=== PATIENT | female | born 2000 | race Caucasian/White ===

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

== ENCOUNTER 2021-06-05 19:19 | Emergency (ER) | payer OTHER ==
[~2021-06-05] VITALS: Ht 180.3 cm; Wt 79.4 kg
[~2021-06-05 19:19] MED LIST: CLEOCIN HCL300 MG PO
[2021-06-05] MEDS ORDERED: PROZAC10 MG PO (19:31)
[2021-06-05] MEDS ORDERED: PROVENTIL HFA6.7 GM INH (21:33)
--- NOTE | 2021-06-06 19:17 | EKG ---
[facility] [address] [facility] [place], [place] [address] Signed Normal sinus rhythm with sinus arrhythmia Normal ECG No previous ECGs available Confirmed by JOSSY CRAFT DO ([id number]) on 06/06/2021 7:17:32 PM Electronically Signed By: JOSSY CRAFT DO 06/06/211916 PATIENT NAME: NILESH ZARAGOZA Electrocardiogram DATE OF : 00 PHYSICIAN: JOSSY CRAFT DO REPORT #: [id number] REPORT IS CONFIDENTIAL AND NOT TO BE RELEASED WITHOUT AUTHORIZATION
== END 2021-06-05 21:47 | disposition home or self-care (01) ==
LOC: ED 19:19
DX: U07.1 COVID-19 (principal); Z88.0 Allergy status to penicillin; Z88.5 Allergy status to narcotic agent
CPT/HCPCS: 71045; 93005; 93010; 99285-25; C9803; U0003

== ENCOUNTER 2022-04-03 19:03 | Inpatient (IN) | payer OTHER ==
[~2022-04-03] VITALS: Ht 182.9 cm; Wt 78.3 kg
[~2022-04-03 19:03] MED LIST changes: +PROVENTIL HFA6.7 GM INH; +PROZAC10 MG PO
--- NOTE | 2022-04-04 03:00 | NUR ---
IN TO ASSIST PT WITH IV POLE, INDEPENDENTLY UP TO THE TOILET, VOIDED AND BACK TO BED
--- NOTE | 2022-04-04 07:26 | NUR ---
Patient in bed resting, eyes closed, respirations even and non labored. Patient has no notable distress. Personal supplies and call light within reach.
--- NOTE | 2022-04-04 09:06 | NUR ---
Patient up in chair eating without distress, a&ox4. Patient reports she is feeling much better today, she denies abdominal discomfort and n/v. More chicken broth and jello provided. No further needs, personal supplies and call light within reach.
--- NOTE | 2022-04-04 11:11 | NUR ---
PATIENT WAS SITTING UP IN HER CHAIR WHILE DRINKING HER BREAKFAST WHEN SHE WAS FINISHED SHE WENT BACK TO BED.
--- NOTE | 2022-04-04 11:25 | NUR ---
Patient resting in bed, no distress. Patient denies abd pain and n/v, tolerating clears very well. Patient's iv site is patent, cont fluids infusing per provider order. No current needs, personal supplies and call light within reach.
--- NOTE | 2022-04-04 14:15 | HP ---
[facility] [address] [place], [place] [address] Signed ADMISSION DATE: 04/03/2022 REASON FOR ADMISSION: Terminal ileitis with focal perforation. 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 She presented to the emergency room at approximately 7:30 p.m. and was evaluated by Dr. Morel with right lower abdominal pain. Clinical examination was highly suggestive of appendicitis. The patient had been having abdominal pain for the past two weeks and upon further discussion, she has had episodes of right lower abdominal pain really since her late teens. She has had multiple episodes of abdominal pain, cramping, and symptoms that were suggestive of low-grade obstruction. She sees MARIIA Arteaga, as her primary provider and recently saw her for similar complaints and was given antacids. Evaluation by Dr. Morel included a CT scan of the abdomen, which showed findings highly suggestive of terminal ileitis as well as a small 2 cm abscess within the mesentery of the ileum. Suggestion is made of possible interloop fistula though that is not clearly demonstrated upon my review. PAST MEDICAL HISTORY: Otherwise unremarkable. She has never had abdominal surgery. Last menstrual period was in March 2022. She does not smoke, use alcohol or illicit drugs. SURGICAL HISTORY: Includes wisdom tooth extraction. ALLERGIES: She is noted to have allergy to penicillin (rash) and hydrocodone, also rash. SOCIAL HISTORY: She is accompanied at this time by her parents. 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 REVIEW OF SYSTEMS: She denies any shortness of breath or chest pain. She has had no leg swelling or signs of deep venous thrombosis. Her pain is restricted to mostly the right lower quadrant. PHYSICAL EXAMINATION: Electronically Signed By: VINICIO DAVIDSON MD 04/04/22 1415 PATIENT NAME: NILESH ZARAGOZA HISTORY AND PHYSICAL DATE OF : 00 REPORT #: [id number] PHYSICIAN: VINICIO DAVIDSON MD PCP: VERONICA MELENDREZ [facility] REPORT IS CONFIDENTIAL AND NOT TO BE RELEASED WITHOUT AUTHORIZATION [facility] [address] [place], [place] [address] Signed GENERAL: A pleasant and healthy-appearing white woman, who does not look systemically toxic. VITAL SIGNS: Temperature is 99.0, pulse 85, blood pressure 126/76, respirations 22. NECK: Shows no thyromegaly or cervical adenopathy. Mucous membranes are slightly dry. CHEST: Shows normal respiratory excursion. Pulses regular. ABDOMEN: Nondistended. Rovsing sign is positive. There is tenderness in the right lower quadrant. I detect no mass. EXTREMITIES: Show no clubbing, cyanosis, or edema. LABORATORY STUDIES: Showed a white count of 11.6, hematocrit 33.9, platelets 359,000 Chem profile essentially normal, glucose 119, lactic acid 0.5, lipase 50. Beta-hCG negative. Urinalysis normal except for urine white cells of 12-20, bacteria 1+. Serology shows negative COVID or influenza. Review of the CT scan images and report notes that oral contrast was not administered for this study. A long segment of inflammatory wall thickening and edema involving the terminal ileum with surrounding mesenteric inflammatory stranding is noted. A fluid collection approximately 2.4 cm is noted in the superomedial aspect of the terminal ileum with some suspicion of fistula formation based on the radiologist's interpretation. Prominent subcentimeter lymph nodes were noted in the right lower abdomen in the mesentery. She has no generalized free air. ASSESSMENT: Almost certainly has terminal ileitis (Crohn's disease). With use of illustrations and so forth, I discussed this with the patient and her parents who were present. The presumed small mesenteric abscess is well contained and does not appear to be generalized peritonitis at this time. I have recommended admission to the hospital, intravenous fluid administration, IV steroids (hydrocortisone), parenteral IV antibiotics, and liquid diet as tolerated for now. DVT prophylaxis is important on the basis of increased risk of thrombophilic state. We discussed the methods of management of such a problem; there is no urgent need for surgical intervention including resection at this time. She will require at some point colonoscopy as long as she does not progress to need for surgical resection acutely. Vinicio Davidson MD /MODL /[id number] Electronically Signed By: VINICIO DAVIDSON MD 04/04/22 1415 PATIENT NAME: NILESH ZARAGOZA HISTORY AND PHYSICAL DATE OF : 00 REPORT #: [id number] PHYSICIAN: VINICIO DAVIDSON MD PCP: VERONICA MELENDREZ PAC REPORT IS CONFIDENTIAL AND NOT TO BE RELEASED WITHOUT AUTHORIZATION [address] [address] Signed cc: MARIIA Travis Copies: ~ Electronically Signed By: VINICIO DAVIDSON MD 04/04/22 1415 PATIENT NAME: NILESH ZARAGOZA HISTORY AND PHYSICAL DATE OF : 00 REPORT #: [id number] PHYSICIAN: VINICIO DAVIDSON MD PCP: VERONICA MELENDREZ PAC REPORT IS CONFIDENTIAL AND NOT TO BE RELEASED WITHOUT AUTHORIZATION
--- NOTE | 2022-04-04 15:50 | NUR ---
ANSWERED PATIENT'S CALL LIGHT. PATIENT WANTED A WASH CLOTH AND SOME HAND LOTION. ALSO SHE WANTED TWO PUDDINGS.
--- NOTE | 2022-04-04 16:51 | NUR ---
She does not use any DME and denies any needs. States she is feeling better and wants to go home by the weekend. She states she has a large family and they will assist her as needed.
--- NOTE | 2022-04-04 17:20 | NUR ---
Tylenol 1000mg po admin for reports of 5/10 headache.
--- NOTE | 2022-04-04 19:40 | NUR ---
pT REPORT RECEIVED. PT IS CURRENTLY AMBULATING WITH HER MOTHER. DENIES PAIN. PT DID REQUEST DIET AND MEDICATION INFO ON HER DISEASE PROCESS. SHE KNOWS TO CALL FOR ANY NEEDS.
--- NOTE | 2022-04-05 00:41 | NUR ---
PT APPEARS TO BE SLEEPING QUIETLY. CALL LIGHT IN REACH. DID NOT DISTURB PT.
--- NOTE | 2022-04-05 07:19 | NUR ---
Report received from night RN- plan of care reivewed.
--- NOTE | 2022-04-05 08:05 | NUR ---
RN IN ROOM TO ASSESS PT AND ADMINISTER SCHEDULED MEDICATIONS. PT UP AMBULATING IN ROOM UPON ENTRY. PT DENIES PAIN OR NAUSEA, 2 LIQUID STOOLS THIS MORNING - UNMEASURED. PT ATE 100% OF FULL LIQUID BREAKFAST WITHOUT DIFFICULTY. IV SITE WNL AND TOLERATING FLUID INFUSION. PT STATES SHE FEELS CONFIDENT TO DC HOME TODAY AND FOLLOW UP OUTPATIENT. CALL LIGHT IN REACH.
[2022-04-05] MEDS ORDERED: BUDESONIDE EC3 MG PO (10:50)
[2022-04-05] MEDS ORDERED: ACETAMINOPHEN500 MG PO (10:51)
[2022-04-05] MEDS ORDERED: DELZICOL400 M1 PO (10:51)
[2022-04-05] MEDS ORDERED: FAMOTIDINE20 MG PO (10:51)
[2022-04-05] MEDS ORDERED: METRONIDAZOLE250 MG PO (10:52)
[2022-04-05] MEDS ORDERED: CIPRO500 MG PO (10:52)
[2022-04-05] MEDS ORDERED: DIFLUCAN100 MG PO (10:53)
--- NOTE | 2022-04-05 11:35 | NUR ---
RN IN ROOM TO REVIEW DC EDUCATION. EXTENSIVE EDUCATION ON LOW FIBER DIET PROVIDED TO PT AND FAMILY. QUESTIONS ANSWERED. VS STABLE. IV DC'D WITHOUT DIFFICULTY OR COMPLAINTS.
--- NOTE | 2022-04-06 11:41 | DS ---
[facility] [address] [place], [place] [address] Signed ADMISSION DATE: 04/03/2022 DISCHARGE DATE: 04/05/2022 REASON FOR ADMISSION: This 21-year-old white woman presented to the emergency room, was evaluated by Dr. Morel with complaints of severe right lower abdominal pain. Clinical examination was consistent with acute appendicitis. A CT scan was performed showing high probability of terminal ileitis. Thickening and inflammation of the terminal ileum as well as a mesenteric abscess 2.5 cm in size was noted. Surgical consultation was undertaken and admission undertaken for management of acute terminal ileitis with mesenteric abscess. Notably, she sees MARIIA Arteaga as her primary provider. She has had much of her care through her life at [facility] as well. The patient has had symptoms of right lower abdominal pain for the preceding two weeks and upon further discussion, she has had episodes of right lower abdominal pain since her late teens. She has had multiple episodes of abdominal pain, cramping, and symptoms suggestive of low-grade obstruction. It is highly probable that she has had Crohn disease (terminal ileitis) for several years that has yet to be recognized and manifest to this level. PAST MEDICAL HISTORY: Rather unremarkable. She has had no abdominal surgery. She does not smoke, use alcohol or illicit drugs but does "vape." She has had wisdom tooth extraction. SOCIAL HISTORY: She is accompanied by her parents. 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 REVIEW OF SYSTEMS: She has had no shortness of breath or chest pain. No leg swelling or signs of deep venous thrombosis. She does not particularly have diarrhea, mostly abdominal pain mostly in the right lower quadrant PERTINENT PHYSICAL EXAMINATION: GENERAL: Pleasant, healthy-appearing white woman who does not look systemically toxic. VITAL SIGNS: Temperature 99, pulse 85, blood pressure 126/76, respirations 22. NECK: Normal. CHEST: Clear. HEART: Regular without murmur. ABDOMEN: Nondistended. Rovsing sign is positive. There is tenderness in the right lower abdomen due to some guarding, mass was not detected initially. Electronically Signed By: VINICIO DAVIDSON MD 04/06/22 1141 PATIENT NAME: NILESH ZARAGOZA DISCHARGE SUMMARY DATE OF : 00 REPORT #: [id number] PHYSICIAN: VINICIO DAVIDSON MD PCP: VERONICA MELENDREZ PAC REPORT IS CONFIDENTIAL AND NOT TO BE RELEASED WITHOUT AUTHORIZATION [facility] [address] [place], [place] [address] Signed LABORATORY STUDIES: Showed a white count of 11.6, hematocrit 33.9, and platelets 359,000. Ultimately, C-reactive protein 6.5 (elevated). Urinalysis showed white cells 12-20, bacteria 1+. Serology showing negative COVID. CT scan images without oral contrast showing extensive inflammatory wall thickening and edema of the terminal ileum surrounded by mesenteric inflammatory stranding and fluid collection 2.4 cm noted in the superomedial aspect of the terminal ileal mesentery. Prominent subcentimeter lymph nodes were noted as well. There was no sign of generalized or free air. HOSPITAL COURSE: She was given the presumptive diagnosis of acute terminal ileitis (Crohn disease). She was given intravenous steroids hydrocortisone 100 mg IV q.8 hours and treated with IV antibiotic cefoxitin and DVT prophylaxis and cytoprotection of her stomach with protonix. She had rapid clinical improvement of her pain and tenderness with these measures and was transitioned to oral budesonide 9 mg p.o. daily as well as mesalamine 800 mg p.o. t.i.d. (2.4 g daily) and have antibiotics transitioned to Cipro 500 mg p.o. b.i.d. and Flagyl 250 mg p.o. t.i.d. Liquid and subsequently full liquid/low-fiber diet was started . She had marked improvement compared to her presentation and at the time of discharge is doing quite well. I discussed with the patient as well as her family the high probability that this represents Crohn disease and that it will be a chronic and lifelong condition most likely, though that is not entirely certain yet. I would expect good medical control going forward however. Ultimately, colonoscopy will be undertaken to allow for better characterization of the colon as well as intubation of the ileum and biopsies and to confirm diagnosis. For now, the acute inflammatory process will be managed allowing it to settle entirely. Progression to obstruction or with chronic pain and so forth may require ileocolectomy with anastomosis. The course of her disease is yet to be determined. If simple management with mesalamine alone can be adequate for symptom management, she may not require more advanced interventions including biologic agent (Humira, etc.) For now, she is rapidly improving and the diagnosis likely to be confirmed in the near future. She is instructed to maintain a low-fiber diet upon discharge and the medications as described. DISCHARGE MEDICATIONS: Will include at this time: 1. Budesonide 9 mg p.o. daily. 2. Flagyl 250 mg p.o. t.i.d. x21. Electronically Signed By: VINICIO DAVIDSON MD 04/06/22 1141 PATIENT NAME: NILESH ZARAGOZA DISCHARGE SUMMARY DATE OF : 00 REPORT #: [id number] PHYSICIAN: VINICIO DAVIDSON MD PCP: VERONICA MELENDREZ REPORT IS CONFIDENTIAL AND NOT TO BE RELEASED WITHOUT AUTHORIZATION [facility] [address] [place], [place] [address] Signed 3. Cipro 500 mg p.o. b.i.d. #14. 4. Tylenol plain 1000 mg p.o. q.6 hours as needed for pain. 5. Pepcid 20 mg p.o. q.12 hours. 6. Mesalamine (Delzicol) 400 mg two caps p.o. t.i.d. (total 2.4 g daily). 7. Diflucan 100 mg p.o. daily if yeast infection should develop. DISCHARGE DIAGNOSES: 1. Terminal ileitis with mesenteric small abscess (2.4 cm). 2. History of wisdom tooth extraction otherwise negative. FOLLOWUP PLAN: She is to return to see me in approximately three weeks. At that point, I suspect she will have clinical improvement and possibly resolution of her symptoms for which one can proceed reasonably to colonoscopy. Additional imaging may ultimately be required as well. MD RAFAELA Marte/MEHRANL /[id number] cc: KAJAL Arteaga Dr. Copies: VERONICA MELENDREZ PAC ~ Electronically Signed By: VINICIO DAVIDSON MD 04/06/22 1141 PATIENT NAME: NILESH ZARAGOZA DISCHARGE SUMMARY DATE OF : 00 REPORT #: [id number] PHYSICIAN: VINICIO DAVIDSON MD PCP: VERONICA MELENDREZ PAC REPORT IS CONFIDENTIAL AND NOT TO BE RELEASED WITHOUT AUTHORIZATION
== END 2022-04-05 12:55 | disposition home or self-care (01) | DRG 385 ==
LOC: ED 19:03 → MS 22:58
PROVIDERS: ADMIT Surgery; ATTEND Surgery
DX: K50.013 Crohn's disease of small intestine with fistula (principal); K65.1 Peritoneal abscess; Z20.822 Contact with and (suspected) exposure to COVID-19; D72.829 Elevated white blood cell count, unspecified; Z98.890 Other specified postprocedural states; Z88.0 Allergy status to penicillin; Z88.5 Allergy status to narcotic agent; Z98.818 Other dental procedure status
CPT/HCPCS: 36415; 74177; 80053; 81001; 83605; 83690; 84703; 85025; 86140; 87088; 87502; A9270; C9803; J0694; J0696; J1644; J1720; J2405; J7121; Q9967; U0003

== ENCOUNTER 2022-04-17 20:34 | Inpatient (IN) | payer OTHER ==
[~2022-04-17] VITALS: Ht 182.9 cm; Wt 78.6 kg
--- NOTE | ~2022-04-17 | DS ---
[facility] [address] [place], [place] [address] Draft ADMISSION DATE: 04/17/2022 DISCHARGE DATE: 04/23/2022 FINAL DIAGNOSIS: Terminal ileitis (probable Crohn disease) with abscess. PROCEDURE: Resection of terminal ileum and cecum with side-to-end anastomosis. HISTORY OF PRESENT ILLNESS: Anel is a 21-year-old female who was admitted to the hospital previously with Dr. Dwyer. She had terminal ileitis most likely consistent with Crohn disease. She had a small abscess in that area. She was tolerating her liquid diet and went home on Cipro, Flagyl, budesonide, and mesalamine. She did not make any progress. She came back to the emergency room. I was asked to admit her as a general surgeon on-call in Dr. Dwyer's absence. HOSPITAL COURSE: Anel was admitted as above and started on her Rocephin and Flagyl along with IV fluids. We took her to the operating room the next day and she underwent resection of her terminal ileum and her cecum. We brought the bowel back together in a side-to-end anastomosis, hand-sewn in two layers. She does have leonel on the end of the right colon and into the terminal ileum. We suctioned out quite a bit of her active fluid from her pelvis. We had it perform a partial omentectomy on the right side because the omentum had developed a rather intense indurated inflammatory process associated with this abscess. The abscess cultures have come back with rare gram-positive cocci, but the final identity is still pending. Anel has been doing well and progressing each day. She is tolerating her diet with lots of flatus and several bowel movements. She is young and her abdomen is actually scaphoid. It is quite soft. All her pain is gone. She is quite excited in that regard. Her incision is healing well without any local signs or symptoms of infection. The leonel remain in place. She has been using Tylenol for the pain. Given her progress, she is going to be discharged to home. In the meantime, we did order her tuberculosis, hepatitis and HIV panels. They are all still pending. We did not order a CRP level or sedimentation rate on this admission. DISCHARGE PLANS AND MEDICATIONS: Anel will be discharged to home with a low residue soft diet. She can do that for 6-8 weeks and then switch back to a regular diet. She should not do any heavy pushing, pulling, or lifting over about 20 pounds. She can shower and bathe as usual, walk up and down stairs. She can walk and exercise very lightly with her upper body and so forth. She should not stress her incision. We are going to leave the leonel in place PATIENT NAME: ANEL ZARAGOZA DISCHARGE SUMMARY DATE OF : 00 REPORT #: [id number] PHYSICIAN: SKYLER BALDERRAMA MD PCP: LATOYA MELENDREZ PAC REPORT IS CONFIDENTIAL AND NOT TO BE RELEASED WITHOUT AUTHORIZATION [address] [address] Draft and I will remove those in the office. We will follow up her labs and her wound culture in the office. We will also follow up the pathology report. This looks like Crohn disease. In that regard, she will need referral to our regional button broacher as soon as possible for consideration of medical therapy. I have reviewed all this with Anel and her mother now several times. They have expressed understanding agreed with above plan. Skyler Balderrama MD ALB/MODL /[id number] cc: MD Latoya Jesus, [facility] Copies: SKYLER BALDERRAMA MD, ERIKA PAC [facility] ~ PATIENT NAME: ANEL ZARAGOZA DISCHARGE SUMMARY DATE OF : 00 REPORT #: [id number] PHYSICIAN: SKYLER BALDERRAMA MD PCP: LATOYA MELENDREZ REPORT IS CONFIDENTIAL AND NOT TO BE RELEASED WITHOUT AUTHORIZATION
[~2022-04-17 20:34] MED LIST changes: +ACETAMINOPHEN500 MG PO; +BUDESONIDE EC3 MG PO; +CIPRO500 MG PO; +DELZICOL400 M1 PO; +DIFLUCAN100 MG PO; +FAMOTIDINE20 MG PO; +METRONIDAZOLE250 MG PO
--- OUTSIDE RECORDS SUMMARY | 2022-04-17 20:36 | XMS ---
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 - 2 Visits in 30 Days CARE PROVIDERS There are no care providers on record at this time. Kelly has no Care Guidelines for this patient. Yuan VISIT COUNT (12 MO.) [address] [facility] TOTAL 3 NOTE: Visits indicate total known visits. ED/C VISIT TRACKING (12 MO.) 04/17/2022 20:[address] [facility] [place] TYPE: Emergency COMPLAINT: - ABD PAIN 04/03/2022 19:03 [facility] [place] TYPE: Emergency COMPLAINT: - ABDOMINAL PAIN 06/05/2021 19:20 [facility] [place] TYPE: Emergency COMPLAINT: - DIFFICULTY BREATHING DIAGNOSES: - COVID-19 - Cough - Allergy status to narcotic agent - Allergy status to penicillin - Other terminal system operator (current) drug therapy INPATIENT VISIT TRACKING (12 MO.) 04/03/2022 22:58 [facility] [place] TYPE: Medical Surgical COMPLAINT: - TERMINAL ILEITIS WITH MESENTRIC 2.5 CM ABSCESS DIAGNOSES: - Fistula of intestine - Crohn's disease of small intestine with abscess - Other specified postprocedural states - Allergy status to penicillin - Other specified postprocedural states - Allergy status to narcotic agent - Contact with and (suspected) exposure to COVID-19 - 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
--- NOTE | 2022-04-18 00:15 | NUR ---
pt ARRIVED FROM ED STRETCHER AND AMBULATED FROM ED STRETCHER TO [facility] BED EASILY AND INDEPENDENTLY. VSS, pt ORIENTED TO ROOM BY PRIMARY RN DONOVAN. IV FLUIDS INFUSING DIRECTED, IV SITES X2 WNL. ADMISSION COMPLETE. WHEN UPDATING pt's ALLERGIES, ALERT FROM ORDERED ROCEPHIN WAS NOTED D/T pt's REPORTED ALLERGY TO PENICILLINS/AMOXICILLIN. SPOKE TO ORTEGA FROM [facility], SMALL PERCENTAGE OF CROSS REACTION IS POSSIBLE, PER [facility] OKAY TO CONTINUE THE ORDERING DOCTOR ACHKNOWLEDGED THE CROSS REACTION WHEN PLACING THE ORDER. pt NPO, CALL LIGHT IN REACH. NO NEEDS OR CONCERNS VERBALIZED. MOTHER REMAINS IN ROOM.
--- NOTE | 2022-04-18 00:30 | NUR ---
ORIENT PT AND MOM TO ROOM, RN AND CALL LIGHT, NPO, PT DENIES NEEDS AT THIS TIME, IV FUSING IN R ARM.
--- NOTE | 2022-04-18 02:37 | NUR ---
pt and mom both sleeping soundly, resp rate regular. vitals taken x2 resting bp is low. will repeat. iv fusing well. pt voided 600 clear yellow urine -
--- NOTE | 2022-04-18 05:00 | NUR ---
pt slept well, low bp, npo, iv fluids, mom stayed in room, voiding well. no n/v/d or pain.
--- NOTE | 2022-04-18 05:35 | NUR ---
IN AT THIS TIME FOR VITALS AND i/O dR. BALDERRAMA HER ON FLOOR - IV ABX STARTED
--- NOTE | 2022-04-18 06:11 | NUR ---
IN ROOM WITH DR. BALDERRAMA FOR AM ASSESSMENT. DISCUSS CURRENT ILLNESS, NO N/V/D AT THIS TIME, IV FUSING ABX.
--- NOTE | 2022-04-18 07:23 | NUR ---
REPORT RECEIVED FROM JANET MAN. PT AWAKE AND ALERT. PT DENIES PAIN AND NAUSEA. STAND BY ASSIST UP TO RESTROOM, PT VOIDS 300ML CLEAR YELLOW URINE. STAND BY ASSIST BACK TO BED. PT DENIES ADDITIONAL REQUESTS OR COMPLAINTS. CALL LIGHT WITHIN REACH. BED RAILS UP.
--- NOTE | 2022-04-18 07:42 | NUR ---
MORNING ASSESSMENT AND MEDICATION DUE. PT UP IN ROOM, LOOKING OUT WINDOW, VISITING WITH MOTHER, AND WALKING AROUND ROOM. PT DENIES PAIN AND NASUEA AT THIS TIME. PT DENIES ADDITIONAL DIARRHEA TODAY. EXTENSIVE EDUCATION DONE WITH PT REGARDING CHRONS DISEASE AND PLAN OF CARE. PT ASKS QUESTIONS AND IS INVOLVED WITH DISCUSSION. PT AND MOTHER STATE THEIR QUESTIONS HAVE BEEN ANSWERED. LUNG SOUNDS CLEAR. HEART TONES REGULAR. IV ABX STARTED (SEE MAR). ABDOMEN SOFT AND MILDLY TENDER IN LOWER RIGHT QUADRANT WITH PALPATION. BOWEL TONES ACTIVE. PT DECLNES ENOXAPARIN AT THIS TIME, PT EDUCATION DONE. PT AMBULATING FREQUENTLY. PT DENIES ADDITIONAL REQUESTS OR COMPLAINTS. CALL LIGHT WITHIN REACH. MOTHER AT BEDSIDE.
--- NOTE | 2022-04-18 08:19 | CONS ---
[facility] [address] [place], [place] [address] Signed DATE OF CONSULTATION: 04/18/2022 CHIEF COMPLAINT: Right lower quadrant abdominal pain. HISTORY OF PRESENT ILLNESS: Anel is a 21-year-old female, who was diagnosed with her Crohn disease about two weeks ago here in the hospital. She apparently had a small abscess next to her terminal ileum. She was given Cipro, Flagyl, Entocort and mesalamine. She said initially she made some progress, but the pain has returned despite the therapy. Her surgeon is currently out of town, so she came to the emergency room for evaluation. I had been asked to admit her as the general surgeon on-call. She was admitted overnight and given Rocephin and Flagyl along with some IV fluids. Overall, she does feel a little better, but she is water mangle tender in the right lower quadrant. Her mom is with her today. I know her mom from previous treatment. PAST MEDICAL HISTORY: Crohn disease x2 weeks. PAST SURGICAL HISTORY: [place] teeth. SOCIAL HISTORY: She does not smoke or drink. She lives alone on a camper near her parents on their property. She is part of [facility], but she also sees Veronica Thompson. Tami is her mother at [phone] and her father is Beni at [phone]. FAMILY HISTORY: No Crohn disease. REVIEW OF SYSTEMS: She had 10 systems reviewed. She thinks the Crohn's has been bothering her for over a year. ALLERGIES: Penicillin, hydrocodone, and amoxicillin. MEDICATIONS: 1. Tylenol. 2. Pepcid. 3. Diflucan. 4. Cipro. 5. Flagyl. Electronically Signed By: SKYLER BALDERRAMA MD 04/18/22 0819 PATIENT NAME: ANEL ZARAGOZA CONSULTATION DATE OF : 00 REPORT #: [id number] PHYSICIAN: SKYLER BALDERRAMA MD PCP: VERONICA THOMPSON PAC REPORT IS CONFIDENTIAL AND NOT TO BE RELEASED WITHOUT AUTHORIZATION [facility] [address] [place], [place] [address] Signed 6. Entocort. 7. Mesalamine. PHYSICAL EXAMINATION: VITAL SIGNS: Blood pressure is 101/40, heart rate is 70, respiratory rate is 17, temperature is 98.2. She is 99% on room air. She is 6 feet tall and 78 kg. GENERAL: Anel is a 21-year-old female, appears healthy and at her stated age. Her mom is in the room along with our nurse. She does not appear systemically ill or toxic. LUNGS: Clear to auscultation bilaterally. HEART: Regular rate and rhythm without murmurs. ABDOMEN: Soft and flat with a palpable mass and tenderness in the right lower quadrant. LABORATORY DATA: Her white count is 13.1, it is down to 10.5; hemoglobin is 9.9 neutrophils 76. Electrolytes are unremarkable. COVID is negative. Lactic acid is 0.8. Her albumin is 2.9. Her liver function tests are negative. Her beta-hCG is negative. The urinalysis is negative. RADIOGRAPHIC STUDIES: A CT scan of abdomen and pelvis is reviewed and we can see the inflammation in the terminal ileum along with the fluid collection measuring 38 x 36 mm along with pelvic ascites. ASSESSMENT AND PLAN: Anel is a 21-year-old female, who presents with persistent Crohn disease with an abscess and pelvic ascites. She appears to have failed her medical therapy. She has been admitted, given IV fluids and antibiotics. My schedule is absolutely packed today, but I will probably consider surgery for her tomorrow. I have reviewed this with Anel and her mother in detail, they have expressed understanding and agreed with the above plan. Skyler Balderrama MD ALB/MODL /[id number] cc: [facility] Electronically Signed By: SKYLER BALDERRAMA MD 04/18/22 0819 PATIENT NAME: ANEL ZARAGOZA CONSULTATION DATE OF : 00 REPORT #: [id number] PHYSICIAN: SKYLER BALDERRAMA MD PCP: VERONICA THOMPSON PAC REPORT IS CONFIDENTIAL AND NOT TO BE RELEASED WITHOUT AUTHORIZATION [address] [address] Signed MD Veronica Jesus PA-C Copies: SKYLER BALDERRAMA MD, ERIKA PAC ~ Electronically Signed By: SKYLER BALDERRAMA MD 04/18/22 0819 PATIENT NAME: ANEL ZARAGOZA CONSULTATION DATE OF : 00 REPORT #: [id number] PHYSICIAN: SKYLER BALDERRAMA MD PCP: VERONICA THOMPSON REPORT IS CONFIDENTIAL AND NOT TO BE RELEASED WITHOUT AUTHORIZATION
--- NOTE | 2022-04-18 09:02 | NUR ---
ASKED NURSE FIRST IF IT WAS OK TWO GIVE HER ICE CHIPS AND SHE SAID SHE HAD TO ASK THE DOCTOR. SO NOW SHE IS ON CLEARS. CHANGED PATIENT'S BED LINENS.
--- NOTE | 2022-04-18 09:34 | NUR ---
THIS RN TO ROOM TO CHECK ON PT. PT REMAINS UP TO COUCH WITH MOTHER. PT REQUESTS JUICE AND CLEAR LIQUIDS AND TO BE ALLOWED TO GO FOR A WALK OUTSIDE WITH HER MOTHER. DR. BALDERRAMA CALLED AND STATES OK FOR PT TO BE ON A CLEAR LIQUID DIET WITH NPO AT MIDNIGHT ORDERS GIVEN. PERMISSION ALSO GIVEN FOR PT TO SIT ON PATIO OUTSIDE WITH HER MOTHER. SAFETY REVIEWED [facility] PT AND MOTHER WHO VERBALIZE UNDERSTANDING. PT DENEIS ADDITIONAL REQUESTS OR COMPLAINTS. JUICE, SORBET, AND TEA PROVIDED. CALL LIGHT WITHIN REACH.
--- NOTE | 2022-04-18 10:18 | NUR ---
THIS RN TO ROOM TO CHECK ON PT. PT UP IN ROOM. PT ASSISTED WITH CHANING INTO HER OWN CLOTHES FROM HOME, IV FLUIDS CONTINUE INFUSING. PT DENIES PAIN AND NAUSEA. NO ADDITIONAL REQUESTS OR COMPLAINTS. CALL LIGHT WITHIN REACH. ICE WATER PROVIDED.
--- NOTE | 2022-04-18 11:06 | NUR ---
THIS RN TO ROOM TO CHECK ON PT. PT RESTING ON COUCH. PT CONTINUES TO DENY PAIN AND NAUSEA. WARM BLANKET PROVIDED PER PT REQUEST. NEW IV FLUID BAG STARTED. PT DENEIS ADDITIONAL REQUESTS OR COMPLAINTS. CALL LIGHT WITHIN REACH.
--- NOTE | 2022-04-18 11:25 | NUR ---
INTO PATIENT ROOM, CASE AMANGEMENT ASSESSMENT COMPLETE. PLEASE REFER TO INTERVENTION FOR FURTHER DETAILS. PATIENT RESTING ON COUCH, NO NEEDS AT THIS TIME.
--- NOTE | 2022-04-18 12:01 | NUR ---
THIS RN TO ROOM TO CHECK ON PT. PT REMAINS UP TO COUCH, TEXTING ON PHONE. PT REPORTS 5/10 RIGHT LOWER QUADRANT CRAMPING ABDOMINAL PAIN THAT "COMES AND GOES." PT REQUESTS PAIN MEDICATION, SEE MAR FOR MEDICATION GIVEN. PT DENIES NAUSEA. PT SIPPING CLEAR LIQUIDS FOR LUNCH. ICE WATER REFILLED. PT DENEIS ADDITIONAL REQUESTS OR COMPLAINTS. CALL LIGHT WITHIN REACH.
--- NOTE | 2022-04-18 13:22 | NUR ---
AFTERNOON ASSESSMENT AND MEDICATION DUE. PT REMAINS UP TO COUCH. PT REPORTS ABDOMINAL PAIN IN RIGHT LOWER QUADRANT HAS RESOLVED "UNLESS I GET UP AND MOVE A LOT." IN THIS CASE PT EPROTS PAIN INCREASES TO 3-4/10, RESOLVED AGAIN WITH REST. PT REMAINS ALERT AND OREINTED TO ALL AND INVOVLED WITH CARES. PT INDEPENDANT IN ROOM AND FOR AMBULATION IN ROM[place], STEADY ON FEET, NO ASSISTANCE NEEDED. HEART TONES REGULAR, LUNG SOUNDS CLEAR. NO EDEMA NOTED, CMS INTACT. ABDOMEN SOFT BUT TENDER TOUCH IN RIGHT LOWER QUANDRANT. BOWEL TONES HYPOACTIVE THIS AFTERNOON. PT REPORTS A FORMED BOWEL MOVEMENT "ABOUT 30 MINUTES AGO." PT DENIES ANY BLOOD IN STOOL STATING IT WAS A "NORMAL" COLOR. PT DENIES NAUSEA. PT DOES REPORT THAT ABDOMEN IS MIDLY DISTENDED COMPAIRED TO HER NORMAL. CLEAR LIQUIDS REFILLED, TEA PROVIDED. IV ASSESSED AND IV ABX STARTED. PT DENIES ADDITIONAL REQUESTS OR COMPLAINTS. CALL LIGHT WITHIN REACH.
--- NOTE | 2022-04-18 13:53 | NUR ---
PATIENT WANTS TO TAKE A SHOWER WHEN HER MOM GETS BACK. SET UP HER SHOWER. SHE WILL CALL WHEN SHE NEEDS HER IV WRAPPED.
--- NOTE | 2022-04-18 14:23 | NUR ---
THIS RN TO ROOM TO CHECK ON PT. PT REMAINS UP TO COUCH. VISITING WITH FAMILY. PT REPORTS SHE IS READY FOR HER SHOWER. IV ABX COMPLETE, IV SALINE LOCKED AT THIS TIME TO ALLOW PT EASE WHEN SHOWERING. PT STEADY ON FEET. IV SITES COVERED WITH ALCOHOL CAPS IN PLACE. NO ADDITIONAL NEEDS AT THIS TIME. CALL LIGHT WITHIN REACH.
--- NOTE | 2022-04-18 15:30 | NUR ---
THIS RN TO ROOM TO CHECK ON PT. PT FINISHED WITH SHOWER AND PERFORMING ORAL CARE. PT REPORTS HER SHOWER FELT "REALLY GOOD." PT REPORTS 0/10 PAIN IN ABDOMEN. PT ASKS QUESTIONS ABOUT HER PLAN OF CARE. PT UPDATED ON PLAN OF CARE AND PAPER PROVIDED FOR PT TO WRITE DOWN HER QUESTIONS FOR THE DOCTOR. PT DENIES ADDITONAL REQUESTS OR COMPLAINTS AT THIS TIME. IV FLUIDS RESTARTED. CALL LIGHT WITHIN REACH. PT RESTING ON COUCH. PT STATES SHE PLANS TO AMBULATE OUTSIDE LATER THIS EVENING.
--- NOTE | 2022-04-18 16:01 | NUR ---
PT HERE FOR CHRONES COLITIS EXACERBATION. PT INDPENDANT IN ROOM, STEADY ON FEET AND AMBULATING IN THE ROMANO. PT TOELRATING CLEAR LIQUID DIET WITH GOOD INTAKE. TO BE NPO AT MIDNIGHT FOR POSSIBLE PROCEEDURE. PT AFEBRIAL SO FAR THIS SHIFT. IV ABX GIVEN. ABOMDEN SOFT BUT TENDER IN RIGHT LOWER QUADRANT. BOWEL TONES ACTIVE THROUGHOUT SHIFT. BOWEL MOVEMENTS SOFT TO FORMED THIS SHIFT. BLOOD PRESSURE REMAINS IN THE 90'S SYSTOLICALLY, MD AWARE. PT INVOLVED WITH CARES AND ASKING GOOD QUESTIONS. SHOWER THIS SHIFT. PT VOIDIGN QUANTITY SUFFICIENT. PT USES CALL LIGHT AND MAKES NEEDS KNOWN.
--- NOTE | 2022-04-18 16:40 | NUR ---
THIS RN TO ROOM TO CHECK ON PT. DR. BALDERRAMA TO BEDSIDE FOR ROUNDS. PLAN FOR SURGERY DISCUSSED WITH PT AND PTS MOTHER BY DR. BALDERRAMA. PT AND MOTHER VERBALIZE UNDERSTANDING OF PROCEEDURE AND STATE THEIR QUESITONS HAVE BEEN ANSWERED. PT CONTINUES RESTING ON COUCH. DENIES PAIN OR NAUSEA. NO ADDITIONAL NEEDS AT THIS TIME. CALL LIGHT WIHTIN REACH.
--- NOTE | 2022-04-18 17:21 | NUR ---
MEDICATION ORDERED. GIVEN ORDERED. PROCEEDURE AND PLAN OF CARE REVEIWED WITH PT IN DETAIL. GREATHER THAN 30 MINUTES SPENT WITH PT ANSERING QUESTIONS AND CLARIFYING WHAT MD HAD TO SAY. PT VERBALIZE UNDERSTANDING AND STATES HER QUESTIONS HAVE BEEN ANSWERED. PT TALKIGN WITH FAMILY ON PHONE. PT DENIES PAIN AND NAUSEA. NO ADDITONAL REQUESTS OR COMPLAINTS. CALL LIGHT WIHTIN REACH.
--- NOTE | 2022-04-18 18:40 | NUR ---
PT OUTSIDE WITH FAMILY TO WALK ON PATIO NEAR [place]. PT DENIES PAIN AND NAUSEA. PT STEADY ON FEET.
--- NOTE | 2022-04-18 19:54 | NUR ---
PT. VITALS AND I/OS CHARTED. PT. ROOM TIDIED AND ORGANIZED. CALL LIGHT LEFT WITHIN REACH. FRESH ICE WATER PROVIDED. NO OTHER IMMEDIATE NEEDS AT THIS TIME.
--- NOTE | 2022-04-18 20:00 | NUR ---
ASSESSMENT COMPLETE, VSS AND I&O'S COMPLETE. IV SITES X2 WNL, NEW BAG IV FLUIDS INFUSING DIRECTED. pt REPORTS MINIMLA ABD DISCOMFORT AT 10/21, STATES, "IT LOOKS LIKE I'M , BUT IT'S GETTING BETTER I THINK ". pt REPROTS SOME INTERMITTENT NAUSEA R/T BOWEL PREP, DENIES NEEDS FOR NAUSEA MEDICATION AT THIS TIME, WILL MONITOR. CALL LIGHT IN REACH, FAMILY ALSO IN ROOM. NO FURTHER NEEDS OR CONCERNS AT THIS TIME.
--- NOTE | 2022-04-18 22:30 | NUR ---
ROUNDED ON pt, pt AWAKE AND RESTIG IN BED. IV SITE REMAINS WNL, FLUIDS CONTINUE TO INFUSIE DIRECTED. CALL LIGHT IN REACH. PARENTS REMAINS IN ROOM.
--- NOTE | 2022-04-18 23:55 | NUR ---
rounded on pt, pt awake and reports 3/10 pain, requesting tylenol. discussed pain options, pt refuses prn dilaudid and offered and educated on pain medication. prn tylenol given, see emar. no further needs, call light in reach.
--- NOTE | 2022-04-19 03:33 | NUR ---
new bag iv fluids hung and infusing as directed, iv site wnl. pt resting quietly, denied needs or concerns. call light in reach. will monitor for changes. mother also in room and sleeping on couch.
--- NOTE | 2022-04-19 06:44 | NUR ---
ROUNDED ON pt, pt RESTING QUIETLY IN BED WITH EYES CLOSED. ON RA, RR EVEN AND UNLABORED. IV FLUIDS INFUSING DIRECTED, IV SITE WNL. VSS AND I&O'S COMPLETE, pt REMAINS NPO. CALL LIGHT IN REACH, NO FURTHER NEEDS. WILL CONTINUE TO MONITOR.
--- NOTE | 2022-04-19 07:00 | NUR ---
last bm noted by this rn was liquid brown. at shift report, when asked about last bm, pt describes as "clear and brown". dr garcia updated, no new orders recieved.
--- NOTE | 2022-04-19 08:45 | NUR ---
REPORT RECEIVED FROM NIGHT RN AND PT. CARE RESUMED. PT. DENIES PAIN IS AMBULATING INDEPENDENTLY TO THE BATHROOM. ASSESSMENT COMPLETED. PRE-OP CHECKLIST COMPLETED. DISCUSSED POST-OP POC, PAIN MANAGEMENT AND MEDS. MOTHER AT BEDSIDE. LEFT RESTING WITH CALL LIGHT IN REACH.
--- NOTE | 2022-04-19 10:02 | NUR ---
Call light answered, IV pump alarming, resolved. Pt resting in bed A+O, she states no needs at this time. Call light in reach.
--- NOTE | 2022-04-19 14:24 | NUR ---
ADDICTION PSYCHIATRIST AND RN HERE TO TAKE PATIENT TO SURGERY. LR INFUSING AND CHECKLIST COMPLETE.
--- NOTE | 2022-04-19 18:29 | NUR ---
04/19/22 1829 Chelita Ibarra 1741-PATIENT TO PACU ON 10L VIA MASK. PATIENT IS NONAROUSABLE TO TACTILE STIMULI. OPA IN PLACE. THIS RN DOING JAW THRUST TO MAINTAIN AIRWAY.
--- NOTE | 2022-04-19 19:00 | NUR ---
pt ARRIVED FROM PACU, REPORT RECEIVED FROM TRUCK HOPPER ORTEGA AT BEDSIDE. pt DROWSY, BUT AWAKENS TO VOICE. VSS, RESPIRATIOSN EVEN AND UNLABORED SLOW BUT WITHIN PARAMETERS. CPOX IN PLACE. PARENTS REMAINS IN ROOM. IV SITE TO LEFT HAND WNL, FLUSHES EASILY WITH BLOOD RETURN. NEW EXTENTSION IN PLACE AND FLUIDS RESUMED PER MD ORDERS. COOL RAG TO FOREHEAD FOR COMFORT. BED IN LOW POSITION AND CALL LIGHT IN REACH.
--- NOTE | 2022-04-19 19:25 | NUR ---
pt REPORTING INCREASING PAIN, RATES AT 8/10 IN ABD. ICE PACK ALREADY IN PLACE, PRN DILAUDID GIVEN (SEE EMAR). pt AND FAMILY BOTH EDUCATED ON MEDICATION AND SIDE EFFECTS INCLUDING RESPIRATORY DEPRESSION, NAUSEA, HEADACHE. pt AND FAMILY VERBALIZED UNDERSTANDING. PARENTS ALSO EDUCATED ON CPOX AND PARAMETERS. RR EVEN AND UNLABORED, FACIAL GRIMACING NOTED. RR LOW TO MID 20'S. WILL CONTINUE TO MONITOR. CALL LIGHT IN REACH.
--- NOTE | 2022-04-19 19:52 | NUR ---
IN ROOM TO REASSESS PAIN, RR EVEN AND UNLABORED. RATE APPROX 20. pt APPEARS RELAXED AND COMFORTABLE AT THIS TIME, CALL LIGHT IN REACH AND FAMILY IN ROOM.
--- NOTE | 2022-04-19 20:14 | NUR ---
POST-OP VSS, pt AWAKENS BRIEFLY AND REPORTS INTERMITTENT ABD PAIN, APPEARS TO FALL BACK ASLEEP. PARENTS REMAINS IN ROOM. ICE PACK REPLACED AND ON ABD FOR COMFORT. IV SITE WNL, FLUIDS INFUSING DIRECTED. CALL LIGHT IN REACH.
--- NOTE | 2022-04-19 20:45 | NUR ---
IN TO ASSIST PT TO MOVE ONTO SIDE, PT C/O GAS BUBBLES AND INCREASING PAIN, PT NUASUS WITH TURNING, RN INFORMED, FAMILY AT PT BEDSIDE
--- NOTE | 2022-04-19 21:10 | NUR ---
POST-OP VSS, pt REMAINS ON RA. IS PROVIDED AND BOTH pT AND FAMILY EDUCATED ON USE AND BENEFITS. PILLOW FOR ABD SPLINTING ALSO PROVIDED. pt ASSISTED WITH LAYING ON HER RIGHT SIDE, REPORTS OF GAS PAIN IN ABD, EDUCATION REGARDING SURGERY AND GAS PAIN DISUCSSED. WARM BLANKETS ALSO PROVIDED. CUP OF ICE. CALL LIGHT IN REACH.
--- NOTE | 2022-04-19 21:21 | OR ---
[facility] [place] [facility] [address] [place], [place] [address] Signed DATE OF OPERATION: 04/19/2022 SURGEON: Skyler Balderrama MD PREOPERATIVE DIAGNOSES: 1. Terminal ileitis with abscess (38 x 36 mm). 2. Pelvic ascites. POSTOPERATIVE DIAGNOSES: 1. Terminal ileitis with abscess (38 x 36 mm). 2. Pelvic ascites. PROCEDURES: 1. Ileocecectomy with side-to-end ileocolonic anastomosis, hand-sewn in two layers. 2. Partial right omentectomy. 3. Cultures of wound abscess. ESTIMATED BLOOD LOSS: 100 mL. FINDINGS: Indeed Anel had a very thickened terminal ileum right through the ileocecal valve. The more proximal ileum was a bit edematous, but less inflamed. The omentum was densely adherent to this abscessed area, which was underneath. Given that, we broke through that area. We suctioned it out and took wound cultures. We had to perform just a partial omentectomy on the right side to release the transverse colon and the omentum from this area of the terminal ileum. We left the omentum attached to that piece of the ileum. Thankfully, the pelvic ascites was quite clear. INDICATIONS: Anel is a 21-year-old female, who believes she has had symptoms for a couple of years with her abdomen. She was in the hospital a couple of weeks ago with Dr. Dwyer and was found to have terminal ileitis and a small fluid collection next to that. She seems to be doing okay on Cipro, Flagyl, budesonide, mesalamine. She was allowed to go home. She had returned and I was asked to admit her as a general surgeon on-call. We started her on Rocephin and Flagyl and hydrated her and overall she did well. She was able to pass some fluid. We gave her a slow bowel prep with polyethylene glycol, that helped clear out more or less most of her stool. I had met with Anel and her mother and reviewed the above findings with them in detail. We could see this area once again on her CT scan. I explained to Anel and her mom that most likely this is Crohn disease Electronically Signed By: SKYLER BALDERRAMA MD 04/19/222120 PATIENT NAME: ANEL ZARAGOZA OPERATIVE REPORT DATE OF : 00 REPORT #: [id number] PHYSICIAN: SKYLER BALDERRAMA MD PCP: LATOYA MELENDREZ PAC REPORT IS CONFIDENTIAL AND NOT TO BE RELEASED WITHOUT AUTHORIZATION [facility] [place] [facility] [address] [place], [place] [address] Signed and it needs to be resected. It is not going to respond to any medical therapy, it is chronic and quite thickened and indurated. They understand we removed the ileum and more than likely the cecum as well. Of course, postoperatively, she will need follow up very closely with a insurance agency owner for ongoing medical therapy. They have made themselves fairly familiar with Crohn disease. They understand it is a lifelong process. There is risk to the surgery including, but not limited to bleeding, infection, scarring, change in contour of the skin, damage to bowel, anastomotic leak, recurrent Crohn disease, incisional hernias and other unforeseen comorbidities. They had expressed understanding and wished to proceed. DESCRIPTION OF PROCEDURE: Anel was taken in the operating room and placed in the supine position under general endotracheal tube anesthesia. She was already on preoperative antibiotics as well as Lovenox. SCDs were utilized. Barnett catheter had been inserted with return of clear yellow urine without difficulty. Once she was pharmacologically paralyzed, we could easily feel this palpable mass in her abdomen in the right lower quadrant. A standard periumbilical midline incision was made about the width of my hand. We carried this into the abdomen with the help of the cautery. We found that her entire process was involved at terminal ileum as it entered into the cecum. We freed up the cecum along and followed the white line of Toldt up and around the hepatic flexure all the way over across the duodenum onto the mid transverse colon that allowed us to bring the right colon down through the incision and her abdominal wall. We divided the proximal ileum, where we thought it was decently healthy with our linear stapler. The mesentery coming up the intestine was divided between Pean clamps and 0-Vicryl ties. We then divided the cecum just beyond the ileocecal valve with the help of our linear stapler. The entire specimen had been passed off the field. It was opened on the back table by our circulating nurse. Pictures were taken for photodocumentation. The ileum swung up quite nicely, so that we could do a side-to-end ileocolonic anastomosis. We did this in two layers with 3-0 Vicryl suture. This anastomosis was about 3 cm in length. We then closed the mesenteric rent with a running 2-0 Vicryl suture. The abdominal cavity had been irrigated and suctioned out until clear. We had divided some of the right omentum between Pean clamps and 0-Vicryl ties to detach the omentum and transverse colon from this abscessed area of the terminal ileum. Underneath the omentum adherent to the ileum was the abscess and we broke that open, we took wound cultures. We copiously irrigated her abdomen, suctioned that out until clear. We returned the bowel back to its natural position. Her omentum is thin, but we brought that back down over the bowel and then we closed the midline fascia with interrupted #1 [id number] PDS sutures. The wound was irrigated and suctioned out until clear. We then closed the dermis with interrupted 3-0 subcuticular Monocryl sutures. The skin was reapproximated with leonel. Dry gauze and tape were then applied. Her Barnett catheter was removed. She was weaned from anesthesia, extubated in the OR, and taken to the recovery room in stable condition. Just after induction of Electronically Signed By: SKYLER BALDERRAMA MD 04/19/22 2121 PATIENT NAME: ANEL ZARAGOZA OPERATIVE REPORT DATE OF : 00 REPORT #: [id number] PHYSICIAN: SKYLER BALDERRAMA MD PCP: LATOYA MELENDREZ REPORT IS CONFIDENTIAL AND NOT TO BE RELEASED WITHOUT AUTHORIZATION [address] [address] Signed her anesthesia, our anesthesia provider had provided bilateral tap blocks. Anel tolerated the procedure quite well. Skyler Balderrama MD ALB/MODL /[id number] cc: MD Latoya Jesus PA-C Patient Chart [facility] Copies: SKYLER BALDERRAMA MD, ERIKA PAC [facility] ~ Electronically Signed By: SKYLER BALDERRAMA MD 04/19/22 2121 PAT[facility] NAME: [facility] REPORT DATE OF : 00 REPORT #: [id number] PHYSICIAN: SKYLER BALDERRAMA MD PCP: LATOYA MELENDREZ REPORT IS CONFIDENTIAL AND NOT TO BE RELEASED WITHOUT AUTHORIZATION
--- NOTE | 2022-04-19 22:53 | NUR ---
PRN TORADOL GIVNE, SEE EMAR FOR REPORTED 8-9/10 PAIN. FRESH ICE PACK IN PLACE. 2200 VSS, pt REMAINS ON RA, RR EVEN AND UNLABORED. pt STOOD 2PA FROM BED TO BSC, VOIDED 300MLS DARK YELLOW URINE AND IS RESTING NOW IN CHAIR, SCD'S DAREK AND CALL LIGHT IN REACH. PARENTS REMAINS IN ROOM. WILL MONITOR FOR CHANGES.
--- NOTE | 2022-04-20 00:15 | NUR ---
CALL LIGHT ANSWERED, pt REPORTS PAIN RATES AT 7-8/10. pt REPORTS PAIN COULD BE RELATED TO GAS PAIN, pt UP SBA WITH FWW AND AMBULATED FROM ROOM TO EAST END OF RN STATION AND BACK TO ROOM-STEADY ON FEET. NO EMESIS NOTED, BUT SCANT PHLEGM WAS SPIT UP. PRN ZOFRAN AND PRN PAIN MEDICATION, SEE EMAR. CPOX REMAINS IN PLACE, RR EVEN AND UNLABORED. RR 14-16, EVEN AND UNLABORED. pt APPEARING MORE RELAXED AND CALM AT THIS TIME. WILL MONITOR, SPO2 UPPER 90'S TO 100%, HR WNL. SOME SHADOWING NOTED TO ABD DRESSING, FRESH ICE PACK IN PLACE. WILL CONTINUE TO MONITOR. PARENTS IN ROOM.
--- NOTE | 2022-04-20 00:47 | NUR ---
ROUNDED ON pt TO REASSESS PAIN, pt RESTING QUIETLY AND FACING AWAY FROM DOOR. RR EVEN AND UNLABORED, RR APPROX 16. NO DISTRESS NOTED, CALL LIGHT IN REACH.
--- NOTE | 2022-04-20 02:41 | NUR ---
CALL LIGHT ANSWERED, pt WOULD LIKE TO AMBULATE. pt UP SBA WITH FWW AND AMBULATED FROM ROOM TO CCU DOORS AND BACK TO BED- TOLERATED WELL. pt REPORTS PASSNG SOME GAS AND BURPING. BT MORE ACTIVE, PRN TYLENOL IV GIVEN FOR REPORTED 5/10 APIN IN ABD. FRESH ICE PACK IN PLACE. 1 CUP ICE ALSO PROVIDED. pt AND MOTHER EDUCATED ON CURRENT ORDERS. NO ADDITIOANL NEEDS, pt ALSO VOIDED. CPOX IN PLACE AND CALL LIGHT IN REACH.
--- NOTE | 2022-04-20 04:08 | NUR ---
call light answered, PT reports [phone] pain kathleen bd, ice pack remaisn in place. prn pain medication given, see emar. mother remais in room and call light in reach. cpox in place.
--- NOTE | 2022-04-20 05:08 | NUR ---
rounded on pt to reassess pain, pt resting quietly with eyes closed. on ra, rr even and unlabored. no disress noted. cpox on, spo2 mid 90's, hr 60's. call light in reach.
--- NOTE | 2022-04-20 06:08 | NUR ---
CALL LIGHT ANSWERED, IV PUMP ALARMING. ISSUE RESOLVED, NEW BAG IV FLUIDS HUNG AND INFUSING DIRECTED. IV SITE WNL, VSS AND I&O'S COMPLETE. CALL LIGHT IN REACH, NO ADDITIONAL NEEDS OR CONCERNS VERBALZIED.
--- NOTE | 2022-04-20 08:09 | NUR ---
PT ALERT AND INTERACTIVE AT TIME OF SHIFT EXCHANGE, MOTHER IS PRESENT IN THE ROOM. PT STATES SHE IS PAINFUL ICE PACKS RE-PLENISHED FRESH ICE CHIPS TO BEDSIDE. PT MEDICATED FOR PAIN AT THIS TIME EDUCATION PROVIDED REGAURDING PAIN CONTROL AND NEED TO AMBULATE. PT VERBALIZES UNDERSTANDING.
--- NOTE | 2022-04-20 08:15 | NUR ---
patient laying the bed. warm washcloth offered and refused. call light with in reach. no further needs at this time.
--- NOTE | 2022-04-20 09:33 | NUR ---
CHECKED WITH PT APPROX 15 MINUTES AFTER MED ADMINISTRATION FOR PAIN, DR BALDERRAMA PRESENT IN THE ROOM WELL PT MOTHER. SHE AGREES PAIN MED WAS EFFECTIVE. PT UP TO RESTROOM AT THIS TIME STEADY ON HER FEET AGREES TO AMBULATE THE ROMANO AT THIS TIME.
--- NOTE | 2022-04-20 10:20 | NUR ---
Pt medicated with 1mg PRN dilaudid for ABD pain after walking in hallway for 2 laps. Pt states wanting to rest at this time. Call light in reach. Primary RN Alis enters room at this time
--- NOTE | 2022-04-20 10:38 | NUR ---
PT AMBULATES 2 LAPS IN THE ROMANO. PAIN MEDS GIVEN PER REQUEST RATES PAIN 1/10 CURRENTLY. STATES SHE WANTS TO NAP WILL SHOWER AND WALK AGAIN AFTERWARD. MOM REMAINS IN THE ROOM
--- NOTE | 2022-04-20 12:06 | NUR ---
PT RESTING IN BED ASKED ABOUT PAIN SHE STATES SHE FEELS BETTER NOW THAN SHE HAS SINCE SURGERY. TYLENOL ADMINISTERED DISCUSSED DILAUDID AND SIDE EFFECTS OF THAT MED. WILL CONTINUE TYLENOL AND TORDOL AT REGULAR INTERVALS DILAUDID FOR SEVERE BREAK THROUGH. PT VERBALIZES UNDERSTANDING.
--- NOTE | 2022-04-20 16:41 | NUR ---
PT AGREES SHE READ THE WRITTEN MATERIAL ON CHRONES DISEASE ASKS APPROPRIATE QUESTIONS AND VERBALIZES UNDERSTANDING. UP TO VOID IS STEADY ON HER FEET PARENTS ARE GONE AT THIS TIME. FRESH ICE PACKS TO ABDOMEN AND TORDOL PROVIDED. PT AGREES SHE IS FEELING BETTER AND DENIES FURTHER NEEDS.
--- NOTE | 2022-04-20 18:09 | NUR ---
PT C/O HICCUPS UP AMBULATING THE ROMANO WITH PARENT.
--- NOTE | 2022-04-20 18:19 | NUR ---
patient walking laps around med/surg, mom and dad walking with her.
--- NOTE | 2022-04-20 18:29 | NUR ---
PT AGREES HICCUPS RESOLVED. RETURNS TO RESTING IN BED PARENTS PRESENT X2
--- NOTE | 2022-04-20 19:00 | NUR ---
SHIFT REPORT RECEIVED FROM DAYSHIFT JANET MITCHELL AT BEDSIDE, pt AWAKE AND RESTING IN BED. NEW BAG IV FLUIDS HUNG AND INFUSING DIRECTED, IV SITE WNL. pt DENIES NEEDS OR CONCERNS. CALL LIGHT IN REACH.
--- NOTE | 2022-04-20 20:23 | NUR ---
ASSESSMENT COMPLETE, NO SCHEDULED MEDS. PRN PAIN MEDICATION GIVEN FOR REPORTED 5/10 PAIN IN ABD- CRAMPING PER pt. ABD INCISION ANGELLA, BONNIE IN PLACE. MILD DISTENTION NOTED, pt DENIES PASSING GAS, BUT REPORTS BURPING AND HICCUPS AT TIMES. IV SITE SWNL, BLOOD RETURN NOTED TO LEFT HAND IV. FRESH HEAT PACK AND WARM BLANKETS PROVIDED. SCD'S IN PLACE. VSS AND I&O'S COMPLETE. FACE SOMEWHAT FLUSHED IN COLOR, RECEIVING DILAUDID. pt AFEBRILE. WILL MONITOR.
--- NOTE | 2022-04-20 22:54 | NUR ---
PT CALLED, REQUESTED ICE BAG, SCD MACHINE ALARMING, PT AWAKE, VISITING WITH MOM, REQUESTED SCD BREAK. NO OTHER NEEDS AT THIS TIME.
--- NOTE | 2022-04-20 23:27 | NUR ---
call light answered, prn tylenol given for reported 4/10 pain, see emar. iv site wnl. no additional needs, call light in reach. mother remains in room.
--- NOTE | 2022-04-20 23:50 | NUR ---
iv pump alarming, issue resolved. iv site wnl, fluids infusing as directed. call light in reach.
--- NOTE | 2022-04-21 00:27 | NUR ---
IV PUMP ALARMING, ISSUE RESOLVED. IV SITE REMAINS WNL, NO ADDITIONAL NEEDS VERBALIZED. CALL LIGHT IN REACH.
--- NOTE | 2022-04-21 02:19 | NUR ---
pt REPORTS 4-5/10 PAIN, PRN PAIN MEDICATION GIVEN (IV TORADOL). IV SITES X2 WNL, CALL LIGHT IN REACH. pt UP TO VOID AND BACK IN BED. NO FURTHER NEEDS. ASSESSMENT COMPLETE, NO ACUTE CHANGES.
--- NOTE | 2022-04-21 05:35 | NUR ---
IV PUMP ALARMING, ISSUE RESOLVED. NO ADDITIONAL NEEDS VERBALZIED, CALL LIGHT IN REACH.
--- NOTE | 2022-04-21 06:49 | NUR ---
MAG RIDER INFUSING DIRECTED AND PRN PAIN MEDICATION GIVEN FOR REPORTED 5/10 PAIN. pt IN CHAIR, TEARFUL, MOTHER EXPLAINS pt IS "SICK OF BEING SICK", THERAPEUTIC COMMUNICATION PROVIDED AND pt REASSURED. IV SITE TO RIGHT WRIST DC/D R/T PAIN WHEN FLUSHED. LEFT HAND REMAINS WNL. NO ADDITIONAL NEEDS, CALL LIGHT IN REACH.
--- NOTE | 2022-04-21 07:23 | NUR ---
Report received from Iliana GONZALES. Pt resting in chair talking with her mother. IVF infusing WNL. Pt denies pain at this time. Call light in reach, will continue plan of care.
--- NOTE | 2022-04-21 08:10 | NUR ---
Scheduled medications administered, IV ABX infusing WNL. Pt sitting up to chair, denies pain and nausea at this time, endorses slight headache. Assessment complete and WNL. This RN had long discussion with patient regarding treatment outlook and optimistic plan for patient condition. She is agreeable and asks questions. No needs at this time, call light in reach.
--- NOTE | 2022-04-21 10:48 | NUR ---
Pt states having slight "stomach upset", states that her stomach is "growling" and she would like to try juice. Dr Foley notified and gives order for clears at this time. Pt expresses anxiety regarding having nausea with any intake, zofran administered, pt agreeable. New order for ofirmev received.
--- NOTE | 2022-04-21 10:54 | NUR ---
Pt provided with apple juice, prepared to walk in hallway with her mother.
--- NOTE | 2022-04-21 11:13 | NUR ---
Pt emotional, states feeling "sore" generalized, requests IV toradol. Administered. Pt resting in chair at this time.
--- NOTE | 2022-04-21 12:30 | NUR ---
Spoke with Anel. She is sitting on edge of the bed. Stands holding onto walker. Mom in the room and mom states pt will be coming to stay in the home with her and she will take care of her.
--- NOTE | 2022-04-21 14:15 | NUR ---
Rounded on patient who is resting in chair, watching tv. She states having no pain, no nausea, and reports that tolerating clear liquids well. Pt states that she is attempting to rest and not stress. Call light in reach, mother sitting at bedside.
--- NOTE | 2022-04-21 15:06 | NUR ---
Dose IV tylenol provided to patient prior to her showering and ambulating in hallway. No further needs at this time.
--- NOTE | 2022-04-21 15:47 | NUR ---
TOOK PT TWO NEW WARM PACKS FOR HER BELLY. PT REQUSTED TYLENOL, RN NOTIFIED.
--- NOTE | 2022-04-21 18:23 | NUR ---
Rounded on patient who is asleep in bed. Even and unlabored RR on room air. Pt's mom provided with diet information printouts for diagnosis.
--- NOTE | 2022-04-21 18:54 | NUR ---
Vitals and I/Os complete. Pt ambulates to BR to void. On room air, no needs at this time. Call light in reach.
--- NOTE | 2022-04-21 19:15 | NUR ---
report from Birdie GONZALES, pt with family in room, denies needs, call light in reach.
--- NOTE | 2022-04-21 19:16 | NUR ---
Pt sneezed and states 6/10 ABD pain with tightening of muscles. Requests PRN meds, IV toradol provided. Ice/heat application as needed. IVF infusing WNL. Parents at bedside. Call light in reach.
--- NOTE | 2022-04-22 03:41 | NUR ---
PT CALLED, IV ALARMING. NOW INFUSING, REQUESTED AND RECEIVED PO TYLENOL FOR 3/10 PAIN. FRESH ICE JA GIVEN, GARBAGES EMPTIED, IV PUMPS PLUGGED IN THEY WERE UNPLUGGED. NO OTHER NEEDS AT THIS TIME
--- NOTE | 2022-04-22 06:27 | NUR ---
pt amb to void 600ml of clear yellow urine, walking well- denies needs.
--- NOTE | 2022-04-22 07:40 | NUR ---
Report received from Florence GONZALES. Pt sitting up in bed listening to music. Pt A+O, RR even and unlabored, pt reports no pain or needs at this time. Call light in reach. Mom at bedside.
--- NOTE | 2022-04-22 08:52 | NUR ---
Scheduled medications administered and assessment complete. Pt sitting up in chair and eating full liquid breakfast, she states tolerating it well at this time. Midline incision c/d/i, leonel [employer] and well approximated. IV ABX infusing. Mom at bedside. Discussed plan of care, both are agreeable.
--- NOTE | 2022-04-22 09:27 | NUR ---
Rounded on patient who is resting in bed, IV ABX infusing WNL. Pt states no needs at this time. Call light in reach.
--- NOTE | 2022-04-22 09:53 | NUR ---
IV ABX infusing WNL, Pt resting in bed with eyes closed and RR even and unlabored. No needs at this time, call light in reach.
--- NOTE | 2022-04-22 10:48 | NUR ---
CONSULT RECEIVED FOR NUTRITION FOR NEW DIAGNOSIS OF CROHN'S DISEASE. PATIENT IS RESTING IN BED. NO FAMILY HERE AT THIS TIME. I MENTIONED THAT I WILL STOP BACK TOMORROW TO SEE IF HER FAMILY IS HERE AND PROVIDE NUTRITION EDUCATION TO EVERYONE. FULL LIQUID DIET IN PLACE.
--- NOTE | 2022-04-22 11:48 | NUR ---
IV pump alarming, occluded, resolved. PO tylenol administered. IVF infusing WNL. Pt resting in bed, states wanting to nap. No needs at this time, call light in reach.
--- NOTE | 2022-04-22 12:27 | NUR ---
THIS RN IN TO SEE PATIENT AND HER FATHER FOR CM. PATIENT'S DC PLAN IS UNCHANGED AND SHE WILL BE DISCHARGING TO HER PARENTS HOME WHERE THEY CAN TAKE CARE OF HER. PATIENT AND FATHER HAD NO OTHER CM CONCERNS OR QUESTIONS AT THIS TIME.
--- NOTE | 2022-04-22 14:15 | NUR ---
New bag IVF hung. Pt denies needs and pain. She states that tolerating full liquid diet and can "feel her stomach waking up". Resting in bed, call light in reach.
--- NOTE | 2022-04-22 15:15 | NUR ---
PATIENT CALLED HAVING ABD PAIN 01/19. THIS RN CAME IN AND TALKED TO PATIENT AND HER MOTHER ABOUT GIVING HER SOME TORADOL SHE IS DUE FOR THE PATIENT SAYS SHE HASN'T FELT PAIN FREE ALL DAY AND SHE WOULD LIKE SOMETHING STRONGER SO ELENIRuben VELASQUEZ HAVE BETTER RELIEF FOR AWILE. THIS RN GAVE 1MG SIVP AND PATIENT TOLERATED THIS WELL. PATIENT DENIED ANY OTHER CARE NEEDS AT THIS TIME. CALL LIGHT IS IN REACH.
--- NOTE | 2022-04-22 17:24 | NUR ---
PATIENT CALLED FOR TAYLOR MEDICATION. PATIENT'S ABD PAIN WAS TAKEN AWAY BY THE DILAUDID, BUT THE DILAUDED GAVE HER A 3/10 TAYLOR. IV TORADOL GIVEN SIVP. PATIENT DENIED ANY OTHER CARE NEEDS AT THIS TIME. CALL LIGHT IS IN REACH.
--- NOTE | 2022-04-22 21:19 | NUR ---
pt amb in cotto with parents, reports feeling well - felt good to get up and go see the sunset!
--- NOTE | 2022-04-22 22:32 | NUR ---
IV INFILTERATED PER TAX ASSOCIATE ATTORNEY, THIS RN CALLED DR. TACOS FULLER TO LEAVE IV OUT AND DC IV MEDS - NEW ORAL ABX ORDERED.
--- NOTE | 2022-04-22 22:44 | NUR ---
THIS DIRECT ENTRY MIDWIFE IN TO THE ROOM. V/S TAKEN. PATIENT STATED DID NOT USE THE BATHROOM FOR THE LAST 3 HOURS. THIS DIRECT ENTRY MIDWIFE ASKED IF SHE WANTS HER WATER REFRESH. PATIENT STATED "NO, i AM GOOD, I JUST WANT TO SLEEP". PATIENT DENIES ANY NEEDS AT THIS TIME. MOM IS IN THE ROOM.
--- NOTE | 2022-04-22 23:33 | NUR ---
PT AND MOM EDUCATED AND PROVIDED A CLEAR ENSURE APPLE JUICE. NO IV - DR BALDERRAMA CALLED AND OK TO LEAVE OUT. PT ENC. TO DRINK WATER AND CL LIQ DIET. VOID QS, BM TODAY AND + FLATUS - PT ENC. TO KEEP UP GOOD PROGRESS. IV DC INTACT.
--- NOTE | 2022-04-23 03:13 | NUR ---
rounded on pt, eyes closed, resp even, call light in reach - mom in room.
--- NOTE | 2022-04-23 05:22 | NUR ---
VOID 200 ML URINE, TOLL PO PAIN PILLS WITH JUICE AND WATER. MOM IN ROOM - BOTH DENY NEEDS, ENC FLUIDS, +FLATUS.
--- NOTE | 2022-04-23 07:48 | NUR ---
Patient in bed resting, no distress. Patient reports she slept well, pain is well controlled and no nausea this morning. Pt's mother at bedside assisting wtih cares. No current needs, personal supplies and call light within reach.
--- NOTE | 2022-04-23 11:40 | NUR ---
PATIENT GETTING READY TO DISCHARGE HOME WITH HER PARENTS. PROVIDED A HANDOUT FROM THE [facility] ON NUTRITION THERAPY FOR CROHN'S DISEASE. EXPLAINED THAT ITS BEST TO KEEP HER DIET LOWER IN FIBER FOR ABOUT 10-14 DAYS. HER GUT IS STILL HEALING SO DON'T OVERDO IT. I RECOMMENDED SHE EAT EVERY 3 TO 4 HOURS TO KEEP HER BODY FUELED AND TO PREVENT EATING LARGE AMOUNTS DUE TO EXCESS HUNGER. GAVE EXAMPLES OF EASY TO DIGEST FOODS TO FOCUS ON INCLUDING LEAN PROTEINS, APPLESAUCE, RIPE BANANAS, CANNED FRUIT, MELON, SOFT COOKED VEGGIES WITHOUT SKINS OR SEEDS, AND LOW-FIBER GRAINS. ONCE SHE IS FEELING BETTER SHE CAN SLOWLY INCREASE FIBER IN HER DIET. THEIR QUESTIONS WERE ANSWERED. MY NAME AND OFFICE # PROVIDED IN CASE FURTHER QUESTIONS ARISE.
== END 2022-04-23 12:00 | disposition home or self-care (01) | DRG 330 ==
LOC: ED 20:34 → MS 23:47
PROVIDERS: ADMIT Colon & Rectal Surgery; ATTEND Colon & Rectal Surgery
PROC: 0DBU0ZZ Excision of Omentum, Open Approach (ICD-10-PCS; 2022-04-19)
PROC: 0DTH0ZZ Resection of Cecum, Open Approach (ICD-10-PCS; principal; 2022-04-19 09:00)
DX: K50.014 Crohn's disease of small intestine with abscess (principal); R18.8 Other ascites; Z20.822 Contact with and (suspected) exposure to COVID-19; E83.42 Hypomagnesemia; Z88.0 Allergy status to penicillin; Z88.6 Allergy status to analgesic agent; Z79.2 Long term (current) use of antibiotics; Z79.899 Other long term (current) drug therapy
CPT/HCPCS: 36415; 74177; 76942; 80048; 80053; 81001; 83605; 83735; 84100; 84134; 84703; 85025; 86705; 86706; 86803; 87040; 87502; 87522; 94762; A9270; C9113; C9803; J0131; J0330; J0696; J1100; J1170; J1650; J1790; J1885; J2250; J2405; J2704; J2765; J2795; J3010; J3475; J7030; J7121; Q9967; U0003

== ENCOUNTER 2025-04-01 20:04 | Emergency (ER) | payer OTHER ==
[~2025-04-01] VITALS: Ht 182.9 cm; Wt 86.4 kg
[~2025-04-01 20:04] MED LIST changes: +MAGNESIUM OXID400 M1 PO
[2025-04-01 21:53] VITALS: BP 158/93
== END 2025-04-01 21:53 | disposition home or self-care (01) ==
LOC: ED 20:04
DX: S93.401A Sprain of unspecified ligament of right ankle, initial encounter (principal); W19.XXXA Unspecified fall, initial encounter; Z88.0 Allergy status to penicillin; Z88.1 Allergy status to other antibiotic agents; Z88.5 Allergy status to narcotic agent
CPT/HCPCS: 73610; 99283